=== PATIENT | male | born 1950 | race Caucasian/White ===

== ENCOUNTER 2016-09-30 11:48 | Observation (INO) | payer OTHER, BC ==
[~2016-09-30] VITALS: Ht 167.6 cm; Wt 98.9 kg
[~2016-09-30 11:48] MED LIST: ATORVASTATIN CA10 MG PO; JANUVIA25 M1 PO; LISINOPRIL10 MG PO; MOTRIN600 MG PO; ULTRAM50 MG PO
[2016-09-30 13:12] LABS: MCH 29.7 PG (29.0-34.0); MCHC 33.9 G/DL (30.0-36.0); MCV 87.6 FL (86-99); MEAN PLAT.VOLUME 10.5 uM^3 (9.0-12.4); PLATELET COUNT 208 K/uL (156-360); RBC DIS.WIDTH-CV 11.9 % (11.8-14.6); RBC DIS.WIDTH-SD 38.1 % (39-53); RED BLOOD COUNT 5.25 M/uL (4.00-5.50); WHITE BLOOD COUNT 10.3 K/uL (4.1-10.2)
[2016-09-30 13:22] LABS: CHLORIDE 104 mEq/L (99-109); POTASSIUM 4.6 mEq/L (3.7-5.4); SODIUM 143 mEq/L (136-147)
[2016-09-30 13:24] LABS: GLUCOSE 81 mg/dL (70-99)
[2016-09-30 13:25] LABS: ANION GAP 9 MEQ/L (2-14)
[2016-09-30 13:27] LABS: GFR ESTIMATE (CALCULATED) > 59 mL/min/
[2016-09-30 13:28] LABS: UREA NITROGEN (BUN) 14 mg/dL (9-23)
[2016-09-30 13:36] LABS: TROP-I INTERPRETATION NEGATIVE; TROPONIN-I < 0.01 ng/mL (0.0-0.30)
[2016-09-30] MEDS ORDERED: LISINOPRIL10 MG PO (14:25)
[2016-09-30 15:48] LABS: TROP-I INTERPRETATION NEGATIVE; TROPONIN-I < 0.01 ng/mL (0.0-0.30)
[2016-09-30] MEDS ORDERED: FLONASE16 G1 BOTH NARES (17:15)
[2016-09-30 18:19] LABS: D-DIMER ELISA 0.41 mg/L FEU (< 0.57)
[2016-09-30 20:23] VITALS: BP 132/67
[2016-09-30 21:56] LABS: ALKALINE PHOSPHATASE 61 IU/L (3-129); DIRECT BILIRUBIN 0.1 mg/dL (0.0-0.3); TOTAL BILIRUBIN 0.5 MG/DL (0.0-1.0)
[2016-09-30 22:00] LABS: TROP-I INTERPRETATION NEGATIVE; TROPONIN-I < 0.01 ng/mL (0.0-0.30)
[2016-10-01 01:29] VITALS: BP 102/57
[2016-10-01 05:26] VITALS: BP 118/66
[2016-10-01 06:13] LABS: TROP-I INTERPRETATION NEGATIVE; TROPONIN-I < 0.01 ng/mL (0.0-0.30)
[2016-10-01 07:58] VITALS: BP 129/77
[2016-10-01 09:07] LABS: ADD MIUA? NO; BILIRUBIN NEGATIVE; BLOOD NEGATIVE; COLOR YELLOW ((YELLOW)); GLUCOSE (STRIP) NEGATIVE; KETONES NEGATIVE; LEUKOCYTES NEGATIVE; NITRITE NEGATIVE; PROTEIN (STRIP) NEGATIVE; SPECIFIC GRAVITY 1.012 (1.000-1.030); UROBILINOGEN 0.2 MG/DL (0.2-1.0)
[2016-10-01] MEDS ORDERED: ASPIR-LOW81 MG PO (10:01)
== END 2016-10-01 11:02 | disposition home or self-care (01) ==
LOC: EME 11:48 → EDOF 19:11 → 5WEST 20:11
PROVIDERS: Hospitalist; Physician Assistant Medical
DX: R07.9 Chest pain, unspecified (principal); R94.31 Abnormal electrocardiogram [ECG] [EKG]; R53.1 Weakness; I10 Essential (primary) hypertension; E78.5 Hyperlipidemia, unspecified; E11.9 Type 2 diabetes mellitus without complications; Z79.84 Long term (current) use of oral hypoglycemic drugs; E66.01 Morbid (severe) obesity due to excess calories; Z68.35 Body mass index [BMI] 35.0-35.9, adult; M79.662 Pain in left lower leg
CPT/HCPCS: 71020; 80048; 80076; 81003; 84443; 84484; 85027; 85379; 93005; 93971; 99281; 99285; G0378